=== PATIENT | male | born 2000 | race Caucasian/White ===

== ENCOUNTER 2020-04-29 13:13 | Outpatient (CLI) | payer BC, SELFPAY ==
[2020-04-29 13:33] LABS: Basophils Percent Auto 0.3 % (0.2-1.2); Eosinophils Percent Auto 0.7 % (0-4.4); Hematocrit 46.2 % (42.0-52.0); Hemoglobin 15.1 g/dL (14.0-18.0); Immature Granulocyte Absolute 0.01 K/mm3 (0.00-0.031); Immature Granulocyte Percent A 0.2 % (0-0.5); Immature Platelet Fraction Pct 3.5 % (0.9-11.2); Lymphocytes Absolute Auto 1.63 K/mm3 (0.9-3.2); Lymphocytes Percent Auto 26.7 % (18.3-44.2); Mean Corpuscular HGB Conc 32.7 g/dl (32-36); Mean Corpuscular Hemoglobin 28.8 pg (26-34); Mean Corpuscular Volume 88.2 fl (80-100); Mean Platelet Volume 9.7 fl (7.4-10.4); Monocytes Absolute Auto 0.5 K/mm3 (0.1-0.6); Monocytes Percent Auto 7.9 % (2.6-8.5); Neutrophils Absolute Auto 3.9 K/mm3 (1.3-6.7); Neutrophils Percent Auto 64.2 % (45.5-73.1); Platelet Count Result 119 k/mm3 (150-375); Red Blood Count 5.24 M/mm3 (4.6-6.20); White Blood Count 6.1 K/mm3 (4.5-10.0)
[2020-04-29 16:43] LABS: Iron 153 ug/dL (49-181)
[2020-04-29 16:48] LABS: Alanine Aminotransferase 13 U/L (4-50); Albumin Level 5.1 g/dL (3.5-5.1); Alkaline Phosphatase 37 U/L (38-126); Anion Gap 14.5 mmol/L (7-16); Aspartate Amino Transferase 22 U/L (17-59); Bilirubin,Total 0.7 mg/dL (0.2-1.3); Blood Urea Nitrogen 23 mg/dL (9-20); Calcium 9.4 mg/dL (8.4-10.2); Carbon Dioxide 29 mmol/L (22-30); Chloride 100 mmol/L (98-107); Estimated Glomerular Filt Rate > 60; Glucose 88 mg/dL (75-110); Potassium 4.5 mmol/L (3.4-5.0); Sodium 139 mmol/L (137-145)
[2020-04-29 16:57] LABS: Percent Iron Saturation 56 % (20-50)
[2020-05-07 18:51] LABS: Platelet Antibody, Direct IgG NEGATIVE (NEGATIVE)
== END 2020-04-29 13:14 | disposition home or self-care (01) ==
PROVIDERS: PCP Internal Medicine; Visit Provider Internal Medicine Hematology & Oncology
DX: D69.59 Other secondary thrombocytopenia (principal)
CPT/HCPCS: 36415; 80053; 82607; 82728; 83540; 83550; 85025; 85055; 86023

== ENCOUNTER → 2020-05-06 08:36 | Outpatient (CLI) | payer BC, SELFPAY ==
--- NOTE | ~2020-05-06 | US_ITS ---
EXAMINATION: US abdomen complete DATE: 05/06/2020 09:06 INDICATION: Epigastric abdominal pain TECHNIQUE: Multiple grayscale and Doppler ultrasound images of the abdomen were obtained. COMPARISON: None available FINDINGS: The head, body, and tail of the pancreas are normal. The liver is normal with normal echoge nicity and echotexture. No surface nodularity. Normal hepatopetal flow in the main portal vein. The g allbladder is normal with no abnormal wall thickening, pericholecystic fluid or stones. The normal co mmon bile duct measures 3 mm. There was no sonographic Meade sign. The visualized portions of the ao rta and inferior vena cava are normal. The right kidney measures 9.9 x 3.6 x 5.3 cm. The left kidney measures 11.1 x 5.8 x 5.7 cm. The kidne ys demonstrate normal parenchymal echogenicity. There is no hydronephrosis. The spleen is normal in a ppearance and measures 11.2 cm. IMPRESSION: 1. No sonographic correlate for the patient's symptoms. Reviewed, dictated and finalized at location A.
== END ==
PROVIDERS: Visit Provider Internal Medicine Hematology & Oncology
DX: R10.13 Epigastric pain (principal)
CPT/HCPCS: 76700

== ENCOUNTER 2020-05-30 01:32 | Outpatient (CLI) | payer BC, SELFPAY ==
[2020-05-30 19:30] LABS: SARS-CoV-2 RNA PCR Negative
== END 2020-05-30 01:33 | disposition home or self-care (01) ==
LOC: ANHCOVIDDT 01:33
PROVIDERS: Visit Provider Internal Medicine Gastroenterology
DX: Z01.812 Encounter for preprocedural laboratory examination (principal); Z11.59 Encounter for screening for other viral diseases
CPT/HCPCS: 87635; C9803; U0003

== ENCOUNTER 2020-06-02 05:19 | Day surgery (SDC) | payer BC, SELFPAY ==
[2020-05-22 10:34] VITALS: BMI 16.7
[2020-06-02 09:23] VITALS: BP 110/70; PULSE 77; RESP 17; TEMP 37.1; O2SAT 100; BMI 18.5
[2020-06-02] MEDS: LACTATED RINGERS 1,000 ML 150 ML IV CONT (09:42)
--- NOTE | 2020-06-02 10:18 | WPDANESEPPF ---
Anes - Initial Pre Proc Eval Procedure: Operation Date: 06/02/20 10:30 Proposed Procedures p Esophagogastroduodenoscopy & Colonoscopy - Josiah Carlisle MD Date/Time: 06/02/20 10:18 Surgeon: Josiah Carlisle MD Pre Op Diagnosis: Constipation, Lower Abdominal Pain,N&V, Ab Wt Loss Patient Data Age: 19 Gender: M Height: 5 ft 8 in Weight: 55.2 kg Last Vital Signs Temp 98.7 F 06/02/20 09:23 Pulse 77 06/02/20 09:23 Resp 17 06/02/20 09:23 BP 110/70 06/02/20 09:23 Pulse Ox 100 06/02/20 09:23 Allergies Allergy/AdvReac Type Severity Reaction Status Date / Time No Known Allergies Allergy Verified 06/02/20 09:22 Home Medications Medication Instructions Recorded Confirmed Type No Home Medications 06/02/20 06/02/20 History Patient hx anesthesia problems: none Family hx anesthesia problems: none [facility] Past Medical History Medical History (Updated 02/26/20 @ 10:13 by Josiah Carlisle MD) Cannabis abuse Constipation Lower abdominal pain Nausea & vomiting Thrombocytopenia Weight loss Social History Social History Smoking status: Current every day smoker Tobacco type: e-cigarettes/vaping Second hand tobacco smoke exposure: Yes Alcohol intake: never Substance use: current Substance use type: marijuana Anes - Eval Final PreProcedure Day of Procedure 06/02/20 10:18 Patient weight: normal Heart: regular rate and rhythm Lungs: clear to auscultation Airway: Mallampati scale class II Neurological: alert and oriented Last oral intake: >/= 8 hours ASA classification: II Emergent: no Anesthetic plan: proceed Anesthesia type and monitoring: general GIVS and standard monitoring Informed Consent: The patient's anesthetic plan and its attendant risks and benefits were discussed with the patient/family/POA. Questions were solicited and answers provided to the satisfaction of the patient/family/POA.
--- NOTE | 2020-06-02 10:53 | PM.HPGS ---
History of Present Illness History of Present Illness Consent: Risks, benefits, and alternatives have been discussed and questions answered. Patient agrees to proceed with procedure. Chief complaint: Constipation, Lower Abdominal Pain,N&V, Ab Wt Loss Narrative: Howard Conner is a 19 year old male with weight loss, N/V and intermittent abdominal pain with constipation. Review of Systems Constitutional: Constitutional: Denies headache(s) and Denies weakness Eyes: Eyes: Denies blurry vision ENT: Reports Normal hearing present, Denies headache(s) and Denies neck pain Cardiovascular: Cardiovascular: Denies chest pain and Denies dyspnea Respiratory: Respiratory: Denies dyspnea Gastrointestinal: Gastrointestinal: Reports no additional gastrointestinal complaints Genitourinary: Genitourinary: Denies dysuria Musculoskeletal: Musculoskeletal: Denies neck pain Integumentary/Breasts: Skin/Breast: Denies dry skin Neurologic: Reports Normal hearing present, Denies headache(s) and Denies weakness Psychiatric: Psychiatric: Denies anxiety Endocrine: Endocrine: Denies change in body appearance Hematologic/Lymphatic: Hematologic/Lymphatic: Denies easy bleeding Allergic/Immunologic: Allergic/Immunologic: Denies urticaria PMFSH Past Medical History Medical History (Updated 02/26/20 @ 10:13 by Josiah Carlisle MD) Cannabis abuse Constipation Lower abdominal pain Nausea & vomiting Thrombocytopenia Weight loss Social History Social History Smoking status: Current every day smoker Tobacco type: e-cigarettes/vaping Second hand tobacco smoke exposure: Yes Alcohol intake: never Substance use: current Substance use type: marijuana Meds Home Medications and Allergies Home Medications Medication Instructions Recorded Confirmed Type No Home Medications 06/02/20 06/02/20 History Allergies Allergy/AdvReac Type Severity Reaction Status Date / Time No Known Allergies Allergy Verified 06/02/20 09:22 Vital Signs Vital Signs - 24 hr 06/02/20 09:23 Temperature 98.7 F Pulse Rate 77 Respiratory Rate 17 Blood Pressure 110/70 Pulse Oximetry 100 Exam Const: General: comfortable and no acute distress HENMT: General nose exam: Normal nares present Eyes: General: appearance normal, both eyes and all related structures Neck: Neck: no JVD Resp: Auscultation: clear to auscultation bilaterally Cardio: Rate: regular rate Rhythm: regular rhythm GI: Inspection: non-distended GI Palp: Yes Soft to palpation Skin: General skin exam: normal color Neuro: General: gait normal Speech: normal speech Extrem: General: normal to inspection Psych: Mental Status: mental status grossly normal Assessment and Plan Assessment and plan (1) Weight loss: Code(s): R63.4 - Abnormal weight loss Status: Acute (2) Constipation: Code(s): K59.00 - Constipation, unspecified Status: Acute (3) Lower abdominal pain: Code(s): R10.30 - Lower abdominal pain, unspecified Status: Acute Assessment and Plan: will proceed with colonoscopy (4) Nausea & vomiting: Code(s): R11.2 - Nausea with vomiting, unspecified Status: Acute Assessment and Plan: egd with biopsies (5) Cannabis abuse: Code(s): F12.10 - Cannabis abuse, uncomplicated Status: Acute
[2020-06-02 11:22] VITALS: BP 87/50; PULSE 66; RESP 33; O2SAT 98
[2020-06-02 11:32] VITALS: BP 87/54; PULSE 55; RESP 26; O2SAT 98
[2020-06-02 11:42] VITALS: BP 104/73; PULSE 47; RESP 21; O2SAT 98
[2020-06-02 11:51] VITALS: BP 114/84; PULSE 57; RESP 20; O2SAT 100
== END 2020-06-02 12:14 | disposition home or self-care (01) ==
PROVIDERS: PCP Internal Medicine; Visit Provider Internal Medicine Gastroenterology
PROC: 0DJ08ZZ Inspection of Upper Intestinal Tract, Via Natural or Artificial Opening Endoscopic (ICD-10-PCS; CPT 43235; principal; 2020-06-02 10:30)
DX: K59.00 Constipation, unspecified (principal); R10.84 Generalized abdominal pain; K29.50 Unspecified chronic gastritis without bleeding; K31.89 Other diseases of stomach and duodenum; K21.9 Gastro-esophageal reflux disease without esophagitis; F17.290 Nicotine dependence, other tobacco product, uncomplicated; F19.10 Other psychoactive substance abuse, uncomplicated; F12.90 Cannabis use, unspecified, uncomplicated
CPT/HCPCS: 45378; 43239; 88305; J2001; J2704; J7120

== ENCOUNTER 2020-08-21 08:42 | Outpatient (CLI) | payer BC, SELFPAY ==
[2020-08-21 08:57] LABS: Basophils Percent Auto 0.4 % (0.2-1.2); Eosinophils Absolute Auto 0.1 K/mm3 (0-0.3); Eosinophils Percent Auto 1.1 % (0-4.4); Hematocrit 46.4 % (42.0-52.0); Hemoglobin 15.1 g/dL (14.0-18.0); Immature Granulocyte Absolute 0.02 K/mm3 (0.00-0.031); Immature Granulocyte Percent A 0.4 % (0-0.5); Lymphocytes Absolute Auto 1.29 K/mm3 (0.9-3.2); Lymphocytes Percent Auto 27.7 % (18.3-44.2); Mean Corpuscular HGB Conc 32.5 g/dl (32-36); Mean Corpuscular Hemoglobin 28.5 pg (26-34); Mean Corpuscular Volume 87.5 fl (80-100); Mean Platelet Volume 9.3 fl (7.4-10.4); Monocytes Absolute Auto 0.4 K/mm3 (0.1-0.6); Monocytes Percent Auto 7.7 % (2.6-8.5); Neutrophils Absolute Auto 2.9 K/mm3 (1.3-6.7); Neutrophils Percent Auto 62.7 % (45.5-73.1); Red Cell Distribution Width 12.2 % (11.5-14.5); White Blood Count 4.7 K/mm3 (4.5-10.0)
[2020-08-21 09:03] LABS: Blood Urea Nitrogen 17 mg/dL (8-26); Carbon Dioxide 29 mmol/L (22-30); Chloride 102 mmol/L (98-109); Estimated Glomerular Filt Rate > 60; Glucose 96 mg/dL (70-105); Potassium 4.2 mmol/L (3.5-4.9); Sodium 142 mmol/L (138-146)
[2020-08-21 09:07] LABS: Platelet Count Result 96 k/mm3 (150-375)
[2020-08-21 12:39] LABS: Iron 110 ug/dL (49-181)
[2020-08-21 12:42] LABS: Alanine Aminotransferase 18 U/L (4-50); Alkaline Phosphatase 42 U/L (38-126); Anion Gap 13 mmol/L (8-16); Aspartate Amino Transferase 25 U/L (17-59); Bilirubin,Total 0.7 mg/dL (0.2-1.3); Blood Urea Nitrogen 17 mg/dL (9-20); Calcium 9.3 mg/dL (8.4-10.2); Carbon Dioxide 29 mmol/L (22-30); Chloride 102 mmol/L (98-107); Estimated Glomerular Filt Rate > 60; Glucose 98 mg/dL (75-110); Potassium 4.3 mmol/L (3.4-5.0); Sodium 144 mmol/L (137-145)
[2020-08-21 12:48] LABS: Percent Iron Saturation 37 % (20-50)
== END 2020-08-21 08:43 | disposition home or self-care (01) ==
LOC: ANHLAB 08:43
PROVIDERS: PCP Internal Medicine; Visit Provider Internal Medicine Hematology & Oncology
DX: D69.59 Other secondary thrombocytopenia (principal)
CPT/HCPCS: 36415; 80048; 80053; 83540; 83550; 85025

== ENCOUNTER 2024-02-12 07:36 | Emergency (ER) | payer BC, SELFPAY ==
[2024-02-12 07:40] VITALS: BP 121/79; PULSE 85; RESP 16; TEMP 37; O2SAT 100
[2024-02-12 07:42] VITALS: O2SAT 100
--- NOTE | 2024-02-12 07:44 | PC.NURSE ---
Pt states he last had Benadryl around 2200 on 02/11/24.
[2024-02-12] MEDS: FAMOTIDINE 20 MG TABLET PO (08:02)
[2024-02-12] MEDS: methylPREDNISolone SOD SUCC 125 MG VIAL IM (08:02)
[2024-02-12] MEDS: diphenhydrAMINE HCl CAP 25 MG CAPSULE 50 MG PO (08:02)
--- NOTE | 2024-02-12 08:05 | ED.ALLEREA ---
HPI - Allergic Reaction General Chief complaint: Allergic Reaction Stated complaint: hives since Monday Time Seen by Provider: 02/12/24 07:45 Source: patient, RN notes reviewed and old records reviewed Mode of arrival: ambulatory Limitations: no limitations History of Present Illness HPI narrative: This is a 23 year old male who presents for evaluation of a rash. Patient has noticed hives to his chest and back starting on Monday . He was able to get improvement of his rash with benadryl. He also noticed he developed hives again this morning to his extremities. He denies any difficulty breathing, fever or pain. He states a few days ago he felt like his lip was swollen. He denies sores inside his mouth and any vision involvement. He denies any new detergent, foods or exposures. He denies nut or seafood allergy. He reports having episodes in the past similar to this but he is not aware of any known allergies. Related Data Allergies Allergy/AdvReac Type Severity Reaction Status Date / Time No Known Allergies Allergy Verified 09/11/23 13:44 Review of Systems Constitutional: Constitutional: Denies weakness Cardiovascular: Cardiovascular: Denies syncope, Denies rapid heart rate, Denies irregular heart rhythm, Denies leg edema and Denies dyspnea Respiratory: Respiratory: Denies chest congestion, Denies hemoptysis, Denies excessive phlegm production and Denies dyspnea Gastrointestinal: Gastrointestinal: Denies abdominal pain, Denies hematochezia, Denies diarrhea and Denies vomiting Genitourinary: Genitourinary: Denies hematuria, Denies dysuria, Denies penile discharge and Denies testicular pain Musculoskeletal: Musculoskeletal: Denies joint swelling, Denies loss of height and Denies muscle weakness Integumentary/Breasts: Skin/Breast: Reports pruritus and Reports rash Neurologic: Denies syncope, Denies focal weakness and Denies weakness PMFSH Past Medical History Medical History Cannabis abuse Constipation Lower abdominal pain Nausea & vomiting Thrombocytopenia Weight loss Family History Family History Mother Patient's mother is in good health Father Patient's father is in good health Sibling Patient's brother is in good health Social History Social History Years smoked: 6 Smoking status: Current every day smoker Tobacco type: e-cigarettes/vaping Second hand tobacco smoke exposure: Yes Alcohol intake: never Substance use: current Substance use type: marijuana Lack of Transportation: No Lack of Food: Never True Current Housing: I Have Housing Concerned About Future Housing: No Difficulty Paying Gas/Electric Bills: No Difficulty Paying for Meds: No Currently Unemployed: No Education: Trade/Vocational Certificate Difficulty w/ Childcare or Family Care: No Living arrangements: with family Occupation/Education: occupation Exam Const: General: no acute distress and alert Nutritional Appearance: well nourished Orientation/consciousness: patient oriented x3 HENMT: Head: normal to inspection Ears: external ears normal and TM's normal bilaterally Face/Nose/Sinus: Normal external nose present Face and sinus: normal facial exam Mouth: Yes Normal oral and palatal mucosa present, Yes lip normal and Yes moist mucous membranes Teeth and gingiva: dentition normal Throat: posterior oropharynx normal and uvula midline Eyes: EOM: EOMs intact bilaterally Chest: Chest palpation & inspection: normal inspection of the chest Resp: Effort & Inspection: normal respiratory effort Auscultation: clear to auscultation bilaterally Cardio: Rate: regular rate Rhythm: regular rhythm Heart sounds: no murmurs GI: GI Palp: Yes Soft to palpation, No Tenderness to palpation present (GI), No Guarding due to palpation present (GI)
== END 2024-02-12 08:27 | disposition home or self-care (01) ==
PROVIDERS: Emergency Provider General Practice; PCP Internal Medicine
DX: L50.9 Urticaria, unspecified (principal); F17.290 Nicotine dependence, other tobacco product, uncomplicated
CPT/HCPCS: 96372; 99283; A9270; J2919

== ENCOUNTER 2025-07-30 20:42 | Emergency (ER) | payer BC, OTHER, SELFPAY ==
--- OUTSIDE RECORDS SUMMARY | 2024-03-06 12:30 | XMS_ITS ---
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 * Medical History: Objective: * Vitals: Assessment: Plan: * Treatment: * Billing Information: * Visit Code: * Procedure Codes: * Electronic signature of DIONY Rico on 07/31/2025 at 12:02 AM CDT Sign off status: Pending * Provider: DIONY Gilbert Date: 0 03/06/2024 Generated for Printi ng/Faxing/eTransmitting on: 1 12:02 AM CDT
--- OUTSIDE RECORDS SUMMARY | 2024-03-06 12:30 | XMS_ITS ---
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 * Medical History: Objective: * Vitals: Assessment: Plan: * Treatment: * Billing Information: * Visit Code: * Procedure Codes: * Electronic signature of DIONY Rico on 07/30/2025 at 08:44 PM CDT Sign off status: Pending * Provider: DIONY Glibert Date: 0 03/06/2024 Generated for Printi ng/Faxing/eTransmitting on: 1 08:44 PM CDT
--- NOTE | ~2025-07-30 | XR_ITS ---
Examination: XR chest 1V portable Clinical History: cough Comparison: Chest x-ray 03/25/2016 Technique: Portable AP Findings: Heart size normal. Lungs clear. No acute bony abnormality. IMPRESSION: 1. No acute cardiopulmonary findings given portable technique. Reviewed, dictated and finalized at location R.
--- OUTSIDE RECORDS SUMMARY | 2025-07-30 20:44 | XMS_ITS | Patient Health Record ---
Author Organization [facility] [place] ([address]) Address [address] [place] [address] Support Name Relationship Address Phone Howard Conner Guarantor Unknown [phone] Reason For Referral No Information Plan Of Treatment No Information Insurance Providers Payer Name Payer Address Payer Phone Subscriber Number Group Number Insured Name Patient Relationship to Insured Coverage Start Date Coverage End Date [facility] [id number] [place] [address] [id number] Howard Conner Self - patient is the insured
[2025-07-30 20:50] VITALS: BP 134/96; PULSE 77; RESP 18; TEMP 37; O2SAT 97
[2025-07-30 23:50] VITALS: BP 153/99; PULSE 71; RESP 22; O2SAT 100
--- NOTE | 2025-07-30 23:56 | ED.SOB ---
HPI - SOB/Dyspnea General Chief Complaint: Shortness of Breath/Dyspnea Stated Complaint: wheezing/SOB Time Seen by Provider: 07/30/25 23:46 History of Present Illness HPI Narrative: 24-year-old otherwise healthy male presenting to the emergency department with diffuse wheezing and cough for last week. States he has no history of asthma but does smoke tobacco and marijuana. He has a sick contacts including his girlfriend at bedside with a cough and fever last week. Patient denies any fever chest pain. No nausea, vomiting, rashes. Was otherwise in his normal state of health. Tried his girlfriend's albuterol at home which did improve his symptoms transiently. Was otherwise not trying any other medications besides Mucinex. Related Data Allergies Allergy/AdvReac Type Severity Reaction Status Date / Time No Known Allergies Allergy Verified 07/30/25 20:43 Review of Systems Review of Systems: As reviewed above in HPI PMFSH Past Medical History Medical History Cannabis abuse Thrombocytopenia Weight loss Constipation Lower abdominal pain Nausea & vomiting Family History Family History Mother Patient's mother is in good health Father Patient's father is in good health Sibling Patient's brother is in good health Social History Social History Years smoked: 6 Smoking status: Current every day smoker Tobacco type: e-cigarettes/vaping Second hand tobacco smoke exposure: Yes Alcohol intake: never Substance use: current Substance use type: marijuana Lack of Transportation: No Lack of Food: Never True Current Housing: I Have Housing Concerned About Future Housing: No Difficulty Paying Gas/Electric Bills: No Difficulty Paying for Meds: No Currently Unemployed: No Education: Trade/Vocational Certificate Difficulty w/ Childcare or Family Care: No Living arrangements: with family Occupation/Education: occupation Exam Narrative: GENERAL: [Well-appearing, well-nourished, and in no acute distress.] HEAD: [Normocephalic, atraumatic.] EYES: [PERRLA and EOMI.] ENT: Nares clear, no rhinorrhea or epistaxis. Mucous membranes moist. NECK: Supple. CHEST: Diffuse end-expiratory wheezing throughout all lung roach, no tachypnea, retractions or decreased air entry however. HEART: [Regular rate and rhythm]. No murmur heard. [Normal peripheral pulses.] ABDOMEN: [Soft, nondistended], [nontender], [No rigidity or guarding] EXTREMITIES: Normal range of motion. [No edema.] SKIN: Warm, dry, no rash. NEURO: [No focal deficits]. Alert and oriented [x3.] PSYCH: [Normal mood and affect.] Course Vital Signs Vital signs: Vital Signs Temperature 37.0 C 07/30/25 20:50 Pulse Rate 77 07/30/25 20:50 Respiratory Rate 18 07/30/25 20:50 Blood Pressure 134/96 H 07/30/25 20:50 Pulse Oximetry 97 07/30/25 20:50 Oxygen Delivery Room Air 07/30/25 20:50 Temperature 37.0 C 07/30/25 20:50 Pulse Rate 100 07/31/25 01:30 Respiratory Rate 16 07/31/25 01:30 Blood Pressure 124/77 07/31/25 01:30 Pulse Oximetry 100 07/31/25 01:30 Oxygen Delivery Room Air 07/30/25 23:51 MDM - SOB/Dyspnea MDM Narrative Medical decision making narrative: 24-year-old otherwise healthy male presenting to the emergency department with diffuse wheezing and cough for last week. States he has no history of asthma but does smoke tobacco and marijuana. He has a sick contacts including his girlfriend at bedside with a cough and fever last week. Patient denies any fever chest pain. No nausea, vomiting, rashes. Was otherwise in his normal state of health. Tried his girlfriend's albuterol at home which did improve his symptoms transiently. Was otherwise not trying any other medications besides Mucinex. Patient is reassuring vitals here without any hypoxemia or tachycardia. No fever. Exam shows diffuse end-expiratory wheezing throughout all lung roach, no tachypnea, retractions or decreased air entry however. Will treat him for reactive airway disease as he has no history of asthma but given his smoking history might have some underlying bronchospasm versus bronchitis versus pneumonia. X-ray obtained and viral panel ordered. He is given Decadron and 1 hour of albuterol and Atrovent treatment. Chest x-ray independently reviewed and interpreted by radiology with no consolidations effusions or pneumothorax. Patient had significant improvement after nebulization treatments. Likely combination of reactive airway disease from viral illness and his vaping. Patient counseled on stopping smoking and vaping and given a course of prednisone, azithromycin, and albuterol for continued treatment of suspected bronchitis. Medical Records Attestation: I reviewed the patient's medical records. Lab Data Attestation: I reviewed the patient's lab results. Labs: Lab Results 07/31/25 Range/Units 00:18 Influenza A (RT-PCR) Negative (Negative) Influenza B (RT-PCR) Negative (Negative) SARS-CoV-2 RNA (RT-PCR) Negative (Negative) Imaging Data Attestation: I personally reviewed and interpreted this imaging study as follows: My impression: No consolidations Discharge Plan Discharge Clinical Impression: Bronchitis Patient Disposition: Home Condition: Stable Instructions: Antibiotic Form, Acute Bronchitis (ED) Additional Instructions: X-ray does not show any pneumonia and you tested negative for COVID flu and RSV. Symptoms consistent with bronchitis exacerbated by your vaping and smoking history. Refrain from any smoking or vaping and take the medications as prescribed including steroids, albuterol as needed, antibiotics for 3 days. Patient Language: Indonesian Prescriptions: New azithromycin [Zithromax Z-Viral] 250 mg tablet See Rx Instructions PO .COMPLEX Qty: 6 0RF Rx Instructions: For 250 mg dose pack: take 500 mg today (day 1), then 250 mg for 4 days (days 2-5) prednisone 50 mg tablet 50 mg PO DAILY 5 Days Qty: 5 0RF albuterol sulfate 90 mcg/actuation HFA aerosol inhaler 2 puff inhalation QID PRN (Reason: shortness of breath or wheezing) Qty: 8.5 0RF No Action famotidine [Pepcid] 20 mg tablet 20 mg PO BID Qty: 20 0RF methylprednisolone [Medrol (Viral)] 4 mg tablets,dose pack See Rx Instructions .ROUTE .COMPLEX Qty: 21 0RF Rx Instructions: orally per package directions lorazepam 1 mg tablet 1 mg PO DAILY PRN (Reason: anxiety) Qty: 10 0RF prednisone 5 mg tablet 5 mg PO DIRECTED Qty: 21 0RF Rx Instructions: Six today, decreasing dose by one tablet daily until gone epinephrine 0.3 mg/0.3 mL syringe 0.3 mg subcut ONCE Qty: 2 1RF Rx Instructions: as a single dose Follow-up/Referrals: PHYSICIAN NOT ON STAFF,NONSTAFF [Primary Care Provider] Time of Disposition: 01:19
[2025-07-31] VITALS: BP 136/93; PULSE 76; RESP 18; O2SAT 98
--- OUTSIDE RECORDS SUMMARY | 2025-07-31 00:03 | XMS_ITS | Clinical Summary ---
Author Organization [facility] Address [address] [place] [address] Care Team Providers Care Surveillance Investigator Name Role Phone Unavailable Primary Care Provider Unavailabl e Source Comments [facility] [employer],non-owned Affiliates and Associated Physician Practices is amultiple site organization consisting of ambulatory clinics and hospital sitesin [place], [place], [place] and [place]. This disclosure is being madepursuant to the Care Everywhere program and may not contain all information available regarding this patient. Last updated 18.[facility] [employer] Allergies No known active allergies Medications * Be aware that medications may not be up to date on this document. Alwaysverify current medications with the patient. naproxen (NAPROSYN) 500 MG tablet Take 1 Tab by mouth 2 times daily. 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 Gender Identity Not on file Sexual Orientation Not on file Plan of Treatment Health Maintenance Due Date Last Done Comments HIV SCREENING 2013 HPV VACCINE (1 - Male 3-dose series) 2013 HEPATITIS C SCREENING 09/14/2016 DTAP/TDAP/TD VACCINES (1 - Tdap) 2017 HEPATITIS B VACCINE (1 of 3 - 19+ 3-dose series) 2017 DEPRESSION SCREENING 10/02/2024 COVID-19 VACCINE (2023-2 5 season) 2025 INFLUENZA VACCINE (#1) 2025 ZOSTER VACCINE (1 of 2) 2048 HIB VACCINE Aged Out No longer eligi ble based on patient's age to complete this topic MENINGOCOCCAL (Group B) VACC INE SHARED DECISION-MAKING Aged Out No longer eligibl e based on patient's age to complete this topic MENINGOCOCCAL GROUPS A/C/Y/W VACCINE Aged Out No longer eligible b ased on patient's age to complete this topic PNEUMOCOCCAL VACCINE Aged Out No long er eligible based on patient's age to complete this topic Insurance ANTHEM ANTHEM MARAH
--- OUTSIDE RECORDS SUMMARY | 2025-07-31 00:03 | XMS_ITS | Patient Health Record ---
Author Organization [facility] [place] ([address]) Address [address] [place] [address] Support Name Relationship Address Phone Howard Conner Guarantor Unknown Reason For Referral No Information Plan Of Treatment No Information Insurance Providers Payer Name Payer Address Payer Phone Subscriber Number Group Number Insured Name Patient Relationship to Insured Coverage Start Date Coverage End Date [facility] [id number] [place] [address] [id number] Howard Conner Self - patient is the insured
[2025-07-31 00:11] VITALS: PULSE 82; RESP 20
[2025-07-31] MEDS: ALBUTEROL SULFATE NEB 2.5 MG/3 ML INH 10 MG INHALATION (00:11)
[2025-07-31] MEDS: IPRATROPIUM BR 0.02% INH SOLN 0.5 MG/2.5 ML VIAL 1 MG INHALATION (00:12)
[2025-07-31] MEDS: dexAMETHasone SOD PHOS INJ 10 MG/ML 1 ML VIAL IM (00:15)
[2025-07-31 00:30] VITALS: BP 123/91; PULSE 80; RESP 18; O2SAT 100
[2025-07-31 00:58] LABS: Influenza A QL RT-PCR Negative (Negative); Influenza B QL RT-PCR Negative (Negative); SARS-CoV-2 RNA PCR Negative (Negative)
[2025-07-31 01:00] VITALS: BP 130/84; PULSE 105; PULSE 91; RESP 18; O2SAT 99
[2025-07-31 01:30] VITALS: BP 124/77; PULSE 100; RESP 16; O2SAT 100
== END 2025-07-31 01:40 | disposition home or self-care (01) ==
PROVIDERS: Emergency Provider Student in an Organized Health Care Education/Training Program
DX: J40 Bronchitis, not specified as acute or chronic (principal); Z20.822 Contact with and (suspected) exposure to COVID-19
CPT/HCPCS: 71045; 87636; 94640; 96372; 99283; J1100